=== PATIENT | male | born 1980 | race American Indian/Alaskan Native ===

== ENCOUNTER 2021-09-14 14:47 | Outpatient (CLI) | payer OTHER ==
--- NOTE | 2021-09-14 16:04 | XRay Report ---
XR knee 1-2V LT INDICATION: LEFT KNEE PAIN. COMPARISON: 10/22/2015 FINDINGS: No acute skeletal abnormality. There appears to be soft tissue gas and swelling in the prepatellar region. No joint effusion. IMPRESSION: 1. Anterior/prepatellar soft tissue swelling with suggestion of soft tissue gas. Has this patient had recent laceration injury/penetrating trauma Signer Name: Sam Johnson MD Signed: 09/14/2021 4:00 PM Workstation Name: [id number]
== END 2021-09-14 14:48 | disposition home or self-care (01) ==
LOC: XRAY 14:47
PROVIDERS: ATTEND Orthopaedic Surgery
DX: M25.562 Pain in left knee (principal)